=== PATIENT | male | born 1945 | race Caucasian/White ===

== ENCOUNTER 2016-11-14 09:44 | Emergency (ER) | payer OTHER, BC ==
[2016-11-14 09:51] VITALS: TEMP 97.5; BMI 31.0
--- NOTE | 2016-11-14 10:32 | PDOC ---
History of Present Illness - General Chief Complaint: Hemoptysis Stated Complaint: THROAT PAIN Time Seen by Provider: 11/14/16 10:11 - History of Present Illness Initial Comments: 11/14/16 10:25 CHIEF COMPLAINT: bleeding from mouth after brushing teeth, cracked lips, " grease on lips" HISTORY OF PRESENT ILLNESS: 71 yo M with hx of thyroid cancer, pituitary tumor ( cortisol daily), GERD, bilateral renal cysts (2011), hemangioma right lobe (2011 ), hypothyroidism, HTN, parkinsons, and seizures, presents to ED with complaint of "coughing up blood, but only after brushing teeth" and "a film in the mouth, like grease" for 2 months. Patient denies any fever, chills, nausea , vomiting, diarrhea, rectal bleeding. Patient denies headache, dizziness, shortness of breath, chest pain. No recent travel or sick contacts. PAST MEDICAL HISTORY: Denies past medical history FAMILY HISTORY: Denies SOCIAL HISTORY: Denies tobacco, alcohol, illicit drug use. SURGICAL HISTORY: Denies ALLERGIES: cipro REVIEW OF SYSTEMS General/Constitutional: Denies fever or chills. Denies weakness, weight change. HEENT: Denies change in vision. Denies ear pain or discharge. Denies sore throat. Cardiovascular: Denies chest pain or shortness of breath. Respiratory: Denies cough, wheezing, or hemoptysis. Gastrointestinal: Denies nausea, vomiting, diarrhea or constipation. Denies rectal bleeding. Genitourinary: Denies dysuria, frequency, or change in urination. Musculoskeletal: Denies joint or muscle swelling or pain. Denies neck or back pain. Skin and breasts: Denies rash or easy bruising. Neurologic: Denies headache, vertigo, loss of consciousness, or loss of sensation. PHYSICAL EXAM General Appearance: Well-appearing, appropriately dressed. No apparent distress. HEENT: No lesions appreciated to mouth, lips, mucosa. No bleeding. EOMI, PERRLA , normal ENT inspection, normal voice, TMs normal, pharynx normal. No conjunctival pallor. No photophobia, scleral icterus. Neck: Supple. Trachea midline. No tenderness, rigidity, carotid bruit, stridor , lymphadenopathy, or thyromegaly. Respiratory/Chest: Lungs CTAB. Cardiovascular: RRR. S1, S2. Vascular Pulses: Dorsalis-Pedis (R): 2+, Dorsalis-Pedis (L): 2+ Gastrointestinal/Abdominal: Normal bowel sounds. Abdomen soft, non-distended. No tenderness or rebound tenderness. No organomegaly, pulsatile mass, guarding , hernia, hepatomegaly, splenomegaly. Lymphatic: No adenopathy, tenderness. Musculoskeletal/Extremities: Normal inspection. FROM of all extremities, normal capillary refill. Pelvis Stable. No CVA tenderness. No tenderness to extremities, pedal edema, swelling, erythema or deformity. Integumentary: Appropriate color, dry, warm. No cyanosis, erythema, jaundice or rash Neurologic: hand tufter II-XII intact. Fully oriented, alert. Appropriate mood/affect. Motor strength 5/5. No appreciable EOM palsy, facial droop or sensory deficit. 11/14/16 12:07 11/14/16 12:08 Past History - Past Medical History Allergies/Adverse Reactions: Allergies Allergy/AdvReac Type Severity Reaction Status Date / Time ciprofloxacin [From Cipro] Allergy Verified 11/14/16 09:47 ciprofloxacin HCl Allergy Verified 11/14/16 09:47 [From Cipro] Home Medications: Ambulatory Orders Aspirin [ASA -] 81 mg PO DAILY 10/26/12 Clonazepam [Klonopin] 0.5 mg PO TID 10/26/12 Hydrocortisone 20 mg PO AM 10/26/12 Levothyroxine [Synthroid -] 200 mcg PO DAILY 10/26/12 Lisinopril [Prinivil] 2.5 mg PO DAILY 10/26/12 Ropinirole HCl [Requip Xl] 12 mg PO DAILY 10/27/12 Carbidopa/Levodopa [Carbidopa-Levo 50-200 Tab SA] 1 each PO HS 01/03/14 Alendronate Sodium [Binosto] 70 mg PO WEEKLY 11/14/16 Atorvastatin Ca [Lipitor] 10 mg PO DAILY 11/14/16 Carbidopa/Levodopa [Carbidopa-Levodopa 25-250 Tab] 1 each PO QID 11/14/16 Clopidogrel Bisulfate [Clopidogrel] 75 mg PO DAILY 11/14/16 Hydrocortisone [Cortef -] 10 mg PO HS 11/14/16 Ranitidine [Zantac -] 150 mg PO BID 11/14/16 Anemia: No Asthma: No Cancer: Yes (THYROID) CVA: No COPD: No Dementia: No Diabetes: No GI Disorders: No Disorders: No HTN: Yes Hypercholesterolemia: No Seizures: Yes (PARKINSONS) Thyroid Disease: Yes - Surgical History Abdominal Surgery: Yes (DUE BLEEDING) - Psycho/Social/Smoking Cessation Hx Anxiety: No Suicidal Ideation: No Smoking History: Never smoked Have you smoked in the past 12 months: No Information on smoking cessation initiated: No Hx Alcohol Use: No Drug/Substance Use Hx: No Substance Use Type: None Hx Substance Use Treatment: No *Physical Exam - Vital Signs Last Vital Signs Temp Pulse Resp BP Pulse Ox 97.5 F L 53 L 18 137/79 99 11/14/16 09:48 11/14/16 09:48 11/14/16 09:48 11/14/16 09:48 11/14/16 09:48 ED Treatment Course - LABORATORY CBC & Chemistry Diagram: 11/14/16 11:05 11/14/16 11:05 Medical Decision Making - Medical Decision Making 11/14/16 12:10 71 yo M with hx of thyroid cancer, pituitary tumor (cortisol daily), GERD, bilateral renal cysts (2011), hemangioma right lobe (2011), hypothyroidism, HTN , parkinsons, and seizures, presents to ED with complaint of "coughing up blood , but only after brushing teeth" and "a film in the mouth, like grease" for 2 months. -CBC, CMP, PT/INR -CXR, EKG CXR negative for malignancy. -IVF Advised patient to follow up with dentist for further evaluation of gums. Advised patient of signs and symptoms for return to ER; patient verbalized understanding and agrees to plan. *DC/Admit/Observation/Transfer Diagnosis at time of Disposition: Hemoptysis - Discharge Dispostion Disposition: HOME Condition at time of disposition: Stable Admit: No - Referrals Referrals: Romero Faustin MD [Primary Care Provider] - Walter Jaramillo MD [Staff Physician] - - Patient Instructions Additional Instructions: As discussed, you need to follow up with an Ear, Nose, and Throat doctor for further evaluation. A referral has been provided. If you experience any fever, chills, nausea, vomiting, diarrhea, significant bleeding, headache, lightheadedness, dizziness, or any new or worsening symptoms, please return to the ER.
[2016-11-14 11:12] LABS: BASOPHIL 0.6 % (0-2.0); MCH 31.3 pg (25.7-33.7); MCHC 33.6 g/dl (32.0-35.9); MEAN PLT VOLUME 7.6 fl (7.5-11.1); NEUTROPHILS 86.1 % (42.8-82.8); PLATELET COUNT 139 K/MM3 (134-434); RDW 15.4 % (11.9-15.9); WHITE BLOOD COUNT 11.7 K/mm3 (4.0-10.0)
[2016-11-14 11:30] LABS: INR 1.04 (0.82-1.09); PROTHROMBIN TIME (PATIENT) 11.5 SEC (9.98-11.88)
[2016-11-14 11:39] LABS: ALBUMIN 3.9 g/dl (3.4-5.0); BILIRUBIN,TOTAL 1.4 mg/dL (0.2-1.0); CALCIUM 8.2 mg/dL (8.5-10.1); COCKROFT - GAULT 53.69; CREATININE 1.7 mg/dL (0.7-1.3); TOT PROT 6.9 g/dl (6.4-8.2)
[2016-11-14] MEDS ORDERED: SODIUM CHLORIDE 0.9% 1000 ML INFUS.BAG IV ONE (11:54)
--- NOTE | 2016-11-14 12:02 | EKG ---
Test Reason : Blood Pressure : / mmHG Vent. Rate : 049 BPM Atrial Rate : 049 BPM P-R Int : 154 ms QRS Dur : 094 ms QT Int : 464 ms P-R-T Axes : 000 021 -73 degrees QTc Int : 419 ms SINUS BRADYCARDIA NONSPECIFIC ST ABNORMALITY Confirmed by MD MARY GREGORY ([id number]) on 11/14/2016 12:01:49 PM Referred By: Confirmed By:MUSTAPHA MARY MD
[2016-11-14 13:30] VITALS: BP 118/61; PULSE 18
== END 2016-11-14 13:24 | disposition home or self-care (01) ==
LOC: JER 09:44
DX: R04.2 Hemoptysis (principal); I10 Essential (primary) hypertension; E03.9 Hypothyroidism, unspecified; K21.9 Gastro-esophageal reflux disease without esophagitis; G40.909 Epilepsy, unspecified, not intractable, without status epilepticus; G20 Parkinson's disease
CPT/HCPCS: 36415; 71010-TC; 80053; 85025; 85610; 93005; 93010; 99282-25

== ENCOUNTER 2017-08-04 23:02 | Emergency (ER) | payer OTHER, BC ==
[2017-08-04 23:47] VITALS: BMI 33.3
[2017-08-05] MEDS ORDERED: SODIUM CHLORIDE 1,000 ML IV SCH (03:00)
[2017-08-05 03:23] LABS: HEMATOCRIT 38.2 % (35.4-49); HEMOGLOBIN 12.8 GM/dL (11.7-16.9); MCH 31.4 pg (25.7-33.7); MCHC 33.4 g/dl (32.0-35.9); MEAN CELL VOLUME 93.9 fl (80-96); MEAN PLT VOLUME 7.6 fl (7.5-11.1); PLATELET COUNT 163 K/MM3 (134-434); RBC 4.07 M/mm3 (4.00-5.60); RDW 15.3 % (11.9-15.9); WHITE BLOOD COUNT 7.2 K/mm3 (4.0-10.0)
--- NOTE | 2017-08-05 03:24 | PDOC ---
History of Present Illness - General Chief Complaint: Pain Stated Complaint: HEADACHE Time Seen by Provider: 08/05/17 02:35 - History of Present Illness Initial Comments: 08/05/17 03:24 71 year old with 2 day history of left frontal headache. denies nausea, vomiting , abdominal pain, chest pain , fever/ chills . pMHX: hypertension, hypercholesteremia, pituitary tumor s/p resection, parkinsons disease PMD; Dr. cavanaugh 08/05/17 06:16 Past History - Past Medical History Allergies/Adverse Reactions: Allergies Allergy/AdvReac Type Severity Reaction Status Date / Time ciprofloxacin [From Cipro] Allergy Verified 08/04/17 23:43 ciprofloxacin HCl Allergy Verified 08/04/17 23:43 [From Cipro] Home Medications: Ambulatory Orders Aspirin [ASA -] 81 mg PO DAILY 10/26/12 Clonazepam [Klonopin] 0.5 mg PO BID 10/26/12 Hydrocortisone 20 mg PO AM 10/26/12 Levothyroxine [Synthroid -] 200 mcg PO DAILY 10/26/12 Lisinopril [Prinivil] 2.5 mg PO DAILY 10/26/12 Ropinirole HCl [Requip Xl] 4 mg PO TID 10/27/12 Carbidopa/Levodopa [Carbidopa-Levo 50-200 Tab SA] 1 each PO HS 01/03/14 Alendronate Sodium [Binosto] 70 mg PO WEEKLY 11/14/16 Atorvastatin Ca [Lipitor] 10 mg PO DAILY 11/14/16 Carbidopa/Levodopa [Carbidopa-Levodopa 25-250 Tab] 1 each PO QID 11/14/16 Clopidogrel Bisulfate [Clopidogrel] 75 mg PO DAILY 11/14/16 Ranitidine [Zantac -] 150 mg PO BID 11/14/16 Anemia: No Asthma: No Cancer: Yes (THYROID) CVA: No COPD: No Dementia: No Diabetes: No GI Disorders: No Disorders: No HTN: Yes Hypercholesterolemia: No Seizures: Yes (PARKINSONS) Thyroid Disease: Yes (Hypo) - Surgical History Abdominal Surgery: Yes (DUE BLEEDING) Neurologic Surgery: Yes (Brain tumor removal) - Suicide/Smoking/Psychosocial Hx Smoking History: Never smoked Have you smoked in the past 12 months: No Information on smoking cessation initiated: No Hx Alcohol Use: No Drug/Substance Use Hx: No Substance Use Type: None Hx Substance Use Treatment: No Review of Systems - Review of Systems Able to Perform ROS?: Yes Is the patient limited Malaysian proficient: No Neurological: Yes: Headache. No: Symptoms reported, See HPI, Numbness, Paresthesia, Pre-Existing Deficit, Seizure, Tingling, Tremors, Weakness, Unsteady Gait, Ataxia, Dizziness, Other *Physical Exam - Vital Signs Last Vital Signs Temp Pulse Resp BP Pulse Ox 97.5 F L 54 L 18 117/81 98 08/04/17 23:43 08/04/17 23:43 08/04/17 23:43 08/04/17 23:43 08/04/17 23:43 - Physical Exam General Appearance: Yes: Appropriately Dressed Respiratory/Chest: positive: Lungs Clear, Normal Breath Sounds Cardiovascular: positive: Regular Rhythm, Regular Rate, Bradycardia Gastrointestinal/Abdominal: positive: Normal Bowel Sounds, Soft. negative: Tender Extremity: positive: Normal Capillary Refill, Normal Inspection, Normal Range of Motion Integumentary: positive: Normal Color, Dry, Warm Neurologic: positive: Fully Oriented, Alert, Normal Mood/Affect Heart Score/ECG Review - ECG Intrepretation Rhythm: Regular Rhythm Comment:: 08/05/17 03:33 sinus bradycardia: 51bpm ED Treatment Course - LABORATORY CBC & Chemistry Diagram: 08/05/17 01:30 08/05/17 01:30 Progress Note - Progress Note Progress Note: A: headach P: Reglan tylenol yetCT head: No brain parenchymal abnormality. No hemorrhage mass or acute territorial infarct. Age are related involutional changes and minimal chronic small vessel ischemic changes. Mucoperiosteal thickening of the paranasal sinuses. Chronic left frontal sinusitis. Visualized mastoid air cells clear Medical Decision Making - Medical Decision Making 08/05/17 05:52 Patient reports that headache has improved. patient feels stomach discomfort. weakness to lower extremity. 08/05/17 06:46 patient given benadryl with improvement in symptoms. patient is currently taking his am meds. pending call back from PMD. *DC/Admit/Observation/Transfer Diagnosis at time of Disposition: Headache Qualifiers: Headache type: tension-type Headache chronicity pattern: acute headache Intractability: not intractable Qualified Code(s): G44.209 - Tension-type headache, unspecified, not intractable - Referrals Referrals: Romero Cavanaugh MD [Primary Care Provider] - - Patient Instructions - Post Discharge Activity
[2017-08-05 03:44] LABS: PROTHROMBIN TIME (PATIENT) 11.3 SEC (9.98-11.88)
[2017-08-05] MEDS ORDERED: ACETAMINOPHEN 325 MG TABLET (FP) PO ONE (04:10)
[2017-08-05] MEDS ORDERED: METOCLOPRAMIDE HCL INJECTION 10 MG/2 ML VIAL IVPUSH ONE (04:10)
--- NOTE | 2017-08-05 04:10 | PDOC ---
*Physical Exam - Vital Signs Last Vital Signs Temp Pulse Resp BP Pulse Ox 97.5 F L 54 L 18 117/81 98 08/04/17 23:43 08/04/17 23:43 08/04/17 23:43 08/04/17 23:43 08/04/17 23:43 ED Treatment Course - LABORATORY CBC & Chemistry Diagram: 08/05/17 01:30 08/05/17 01:30 - ADDITIONAL ORDERS Additional order review: Laboratory Results 08/05/17 01:30 PT with INR 11.30 INR 1.00 08/05/17 01:30 RBC 4.07 MCV 93.9 MCHC 33.4 RDW 15.3 MPV 7.6 Neutrophils % No Result Required. Lymphocytes % No Result Required. Medical Decision Making - Medical Decision Making 08/05/17 04:09 agree with care from MOODY Curry *DC/Admit/Observation/Transfer Diagnosis at time of Disposition: Headache Qualifiers: Headache type: tension-type Headache chronicity pattern: acute headache Intractability: not intractable Qualified Code(s): G44.209 - Tension-type headache, unspecified, not intractable - Referrals Referrals: Romero Faustin MD [Primary Care Provider] - - Patient Instructions - Post Discharge Activity
[2017-08-05] MEDS ORDERED: METOCLOPRAMIDE HCL INJECTION 10 MG/2 ML VIAL ONE (04:12)
[2017-08-05] MEDS ORDERED: ACETAMINOPHEN 325 MG TABLET (FP) ONE (04:12)
[2017-08-05 04:22] LABS: ALBUMIN 3.9 g/dl (3.4-5.0); ALK PHOS 48 U/L (45-117); ANION GAP 7 (8-16); BILIRUBIN,TOTAL 0.8 mg/dL (0.2-1.0); BLOOD UREA NITROGEN 33 mg/dL (7-18); CALCIUM 8.1 mg/dL (8.5-10.1); CHLORIDE 105 mmol/L (98-107); CO2 26 mmol/L (21-32); CREATININE 1.5 mg/dL (0.7-1.3); GLUCOSE,RANDOM 80 mg/dL (74-106); POTASSIUM 4.6 mmol/L (3.5-5.1); SGOT/AST 15 U/L (15-37); SGPT/ALT 10 U/L (12-78); SODIUM 138 mmol/L (136-145); TOT PROT 6.7 g/dl (6.4-8.2)
[2017-08-05 04:30] LABS: URINE APPEARANCE CLEAR; URINE BILIRUBIN NEGATIVE (NEGATIVE); URINE BLOOD NEGATIVE (NEGATIVE); URINE COLOR LTYELLOW; URINE GLUCOSE (UA) NEGATIVE (NEGATIVE); URINE KETONE TRACE (NEGATIVE); URINE LEUK ESTERASE NEGATIVE (NEGATIVE); URINE NITRITE NEGATIVE (NEGATIVE); URINE PROTEIN NEGATIVE (NEGATIVE); URINE UROBILINOGEN NEGATIVE mg/dL (0.2-1.0)
--- NOTE | 2017-08-05 08:36 | PDOC ---
*Physical Exam - Vital Signs Last Vital Signs Temp Pulse Resp BP Pulse Ox 97.5 F L 54 L 18 117/81 98 08/04/17 23:43 08/04/17 23:43 08/04/17 23:43 08/04/17 23:43 08/04/17 23:43 ED Treatment Course - LABORATORY CBC & Chemistry Diagram: 08/05/17 01:30 08/05/17 01:30 - ADDITIONAL ORDERS Additional order review: Laboratory Results 08/05/17 08/05/17 08/05/17 04:20 01:30 01:30 PT with INR INR Sodium 138 Potassium 4.6 Chloride 105 Carbon Dioxide 26 Anion Gap 7 L BUN 33 H Creatinine 1.5 H Creat Clearance w eGFR 46.13 Random Glucose 80 D Calcium 8.1 L Total Bilirubin 0.8 D AST 15 ALT 10 L Alkaline Phosphatase 48 Creatine Kinase 149 Troponin I 0.02 Total Protein 6.7 Albumin 3.9 Urine Color Ltyellow Urine Appearance Clear Urine pH 5.0 Ur Specific [place] 1.012 Urine Protein Negative Urine Glucose (UA) Negative Urine Ketones Trace H Urine Blood Negative Urine Nitrite Negative Urine Bilirubin Negative Urine Urobilinogen Negative Ur Leukocyte Esterase Negative Blood Type A POSITIVE Antibody Screen Negative 08/05/17 01:30 PT with INR 11.30 INR 1.00 Sodium Potassium Chloride Carbon Dioxide Anion Gap BUN Creatinine Creat Clearance w eGFR Random Glucose Calcium Total Bilirubin AST ALT Alkaline Phosphatase Creatine Kinase Troponin I Total Protein Albumin Urine Color Urine Appearance Urine pH Ur Specific [place] Urine Protein Urine Glucose (UA) Urine Ketones Urine Blood Urine Nitrite Urine Bilirubin Urine Urobilinogen Ur Leukocyte Esterase Blood Type Antibody Screen 08/05/17 01:30 RBC 4.07 MCV 93.9 MCHC 33.4 RDW 15.3 MPV 7.6 Neutrophils % No Result Required. Lymphocytes % No Result Required. - Medications Given in the ED: ED Medications Discontinued Medications Generic Name Dose Route Start Last Admin Trade Name Freq PRN Reason Stop Dose Admin Acetaminophen 650 mg 08/05/17 04:10 08/05/17 04:27 Tylenol - PO 08/05/17 04:11 650 mg ONCE ONE Administration Diphenhydramine HCl 25 mg 08/05/17 05:47 08/05/17 06:00 Benadryl Injection - IVPB 08/05/17 05:48 25 mg ONCE ONE Administration Metoclopramide HCl 10 mg 08/05/17 04:10 08/05/17 04:27 Reglan Injection - IVPUSH 08/05/17 04:11 10 mg ONCE ONE Administration Medical Decision Making - Medical Decision Making 08/05/17 08:39 Patient received in sign out from MOODY Curry. Patient here with complaints of headache. Patient with history of pituitary removal and history of thyroid CA. Patient head CT negative for acute findings. Patient requesting to eat, so given breakfast tray. Call placed to Dr. Colon was covering physician Dr. Brizuela. Patient will be sent home in the meanwhile. repeat vital stable. 08/05/17 10:[address] Brizuela and will notify Dr. Colon also of patient' s emergency room visit. *DC/Admit/Observation/Transfer Diagnosis at time of Disposition: Headache Qualifiers: Headache type: tension-type Headache chronicity pattern: acute headache Intractability: not intractable Qualified Code(s): G44.209 - Tension-type headache, unspecified, not intractable - Discharge Dispostion Disposition: HOME Condition at time of disposition: Improved - Referrals Referrals: Romero Faustin MD [Primary Care Provider] - - Patient Instructions Printed Discharge Instructions: DI for Headache Additional Instructions: Please take Tylenol 975mg every 8 hours for headache. Follow-up with your primary care physician as needed and may return to ED if any given time if your symptoms return or worsen. - Post Discharge Activity
[2017-08-05 08:52] VITALS: BP 123/77; PULSE 66; TEMP 97.7
--- NOTE | 2017-08-05 12:00 | EKG ---
Test Reason : Blood Pressure : / mmHG Vent. Rate : 051 BPM Atrial Rate : 051 BPM P-R Int : 162 ms QRS Dur : 112 ms QT Int : 462 ms P-R-T Axes : 074 024 037 degrees QTc Int : 425 ms POOR DATA QUALITY, INTERPRETATION MAY BE ADVERSELY AFFECTED SINUS BRADYCARDIA OTHERWISE NORMAL ECG WHEN COMPARED WITH ECG OF 14-NOV-2016 10:29, NON-SPECIFIC CHANGE IN ST SEGMENT IN INFERIOR LEADS ST ELEVATION HAS REPLACED ST DEPRESSION IN ANTERIOR LEADS NONSPECIFIC T WAVE ABNORMALITY HAS REPLACED INVERTED T WAVES IN INFERIOR LEADS Confirmed by MANNY CHAVEZ MD ([id number]) on 08/05/2017 12:00:07 PM Referred By: Confirmed By:MANNY CHAVEZ MD
== END 2017-08-05 08:52 | disposition home or self-care (01) ==
LOC: JER 23:02
PROC: 3E033GC Introduction of Other Therapeutic Substance into Peripheral Vein, Percutaneous Approach (ICD-10-PCS; principal; 2017-08-04)
PROC: 3E033GC Introduction of Other Therapeutic Substance into Peripheral Vein, Percutaneous Approach (ICD-10-PCS; 2017-08-04)
DX: G44.209 Tension-type headache, unspecified, not intractable (principal); I10 Essential (primary) hypertension; E78.00 Pure hypercholesterolemia, unspecified; G20 Parkinson's disease; E89.3 Postprocedural hypopituitarism; Z85.850 Personal history of malignant neoplasm of thyroid
CPT/HCPCS: 36415; 70450-TC; 80053; 81003; 82550; 84484; 85025; 85610; 86850; 86900; 86901; 93005; 93010; 99283-25